=== PATIENT | female | born 2005 | race Caucasian/White ===

== ENCOUNTER 2024-10-30 21:30 | Emergency (ER) | payer MEDICAID, SELFPAY ==
--- NOTE | 2024-10-31 00:32 | PC.NURSE ---
PT DECIDED TO LEAVE
== END 2024-10-30 21:34 | disposition left against medical advice (07) ==
LOC: SERX 21:40
PROVIDERS: Emergency Provider Family Medicine
DX: Z53.21 Procedure and treatment not carried out due to patient leaving prior to being seen by health care provider (principal)
CPT/HCPCS: 99281

== ENCOUNTER 2024-10-30 23:14 | Emergency (ER) | payer MEDICAID, SELFPAY ==
[2024-10-30 23:16] VITALS: BMI 20.3
[2024-10-30 23:34] VITALS: BP 115/70; PULSE 71; RESP 16; TEMP 37.1; O2SAT 97
--- NOTE | 2024-10-30 23:51 | EDNOTE_ITS ---
ED Dental RME/HPI General Chief complaint: General Adult/Misc Complain Stated complaint: BUMPS INSIDE MOUTH Time Seen by Provider: 10/30/24 23:40 Arrival date/time: 10/30/24 23:14 This is a case of 18-year-old female with no medical history came in in the emergency room due to multiple lesion on the tongue and mouth for 3 days with pain worsening symptoms this patient decided to sought consult here in the emergency room Limitations: no limitations Related Data Previous Rx's ?Medication ?Instructions ?Recorded Hydrocodone/Acetaminophen * (NORCO 1 tab PO Q6H PRN PA IN 7 days #0 01/30/17 5/325 *) tabs ibuprofen 200 mg tablet 200 mg PO Q6HR PRN PAIN #90 tabs 01/30/17 hydrocodone 5 mg-acetaminophen 325 1 tab PO Q6H PRN pa in #6 tabs 10/30/24 mg tablet lidocaine HCl 2 % mucosal solution 10 ml PO Q4HR PRN o ral pain #100 mL 10/30/24 (Lidocaine Viscous) nystatin 100,000 unit/mL oral 500,000 unit (5 mL) PO Q 6H 5 days 10/30/24 suspension #100 mL valacyclovir 1 gram tablet 1,000 mg PO BID #20 tabs Allergies Allergy/AdvReac Type Severity Reaction Status Date / Time No Known Allergies Allergy Verified 10/30/24 23:15 Review of Systems Review of Systems Systems Reviewed: All systems reviewed, normal except as documented Constitutional Constitutional: Reports system reviewed and no additional complaints, except as documented and Reports as per HPI ENT Ears, Nose, Mouth, and Throat: Reports system reviewed and no additional complaints, except as documented and Reports as per HPI Cardiovascular Cardiovascular: Reports system reviewed and no additional complaints, except as documented and Reports as per HPI Respiratory Respiratory: Reports system reviewed and no additional complaints, except as documented and Reports as per HPI Gastrointestinal Gastrointestinal: Reports system reviewed and no additional complaints, except as documented and Reports as per HPI Integumentary/Breasts Skin/Breast: Reports system reviewed and no additional complaints, except as documented and Reports as per HPI Neurologic Neurologic: Reports system reviewed and no additional complaints, except as documented and Reports as per HPI Past Medical History Social History SMOKING STATUS: Current every day smoker ED Exam General Limitations: Present no limitations General appearance: Present alert, in no apparent distress and other (Is awake alert oriented not in distress nontoxic looking well-hydrated well-nourished) Head Head exam: Present atraumatic, normocephalic and normal inspection Eye Eye exam: Present normal appearance, PERRL and EOMI ENT ENT exam: Present normal exam, normal oropharynx, mucous membranes moist and ot her (HEENT exam is normal and unremarkable) Expanded ENT Exam Mouth exam: Present other (Noted whitish plaque on the dorsal aspect of the tongue and buccal mucosa suggestive of oral candidiasis patient also have confluent vesicular rash on the corner of the lips suggestive of cold sore); Absent drooling, trismus, lip swelling, tongue normal, tongue elevation, tongue swelling or laceration Neck Neck exam: Present normal inspection, full ROM and trachea midline; Absent tenderness, meningismus or lymphadenopathy Chest Chest inspection: Present normal inspection and symmetric chest wall rise; Absent tenderness Respiratory Respiratory exam: Present normal lung sounds bilaterally; Absent respiratory distress, wheezes, stridor, accessory muscle use or prolonged expiratory phase Cardiovascular Cardiovascular exam: Present regular rate, normal rhythm and normal heart sounds; Absent bradycardia, tachycardia, irregular rhythm, systolic murmur or diastolic murmur Abdominal Exam Abdominal exam: Present soft and normal bowel sounds Extremities Exam Extremities exam: Present normal inspection and full ROM Back Exam Back exam: Present normal inspection and full ROM Neurological Exam Neurological exam: Present alert, oriented X3, CN II-XII intact, normal gait and reflexes normal; Absent motor sensory deficit Psychiatric Psychiatric exam: Present normal affect and normal mood Skin Skin exam: Present warm, dry, intact and normal color Course Quality Measures none (None) Orders Category Date Time Status HSV-1&2 DNA, QN, CSF* Stat Lab 10/30/24 Ordered Fluconazole [Diflucan] Med 10/30/24 23:44 Discontinued 200 mg PO X1 ONE HYDROcodone*/APAP 5/325 [Gonzales 5/325] Med 10/30/24 23:44 Discontinued 1 tab PO X1 ONE Lidocaine 2% Viscous [Xylocaine 2% Viscous] Med 10/30/24 23:44 Discontinued 15 ml PO X1 ONE Vital Signs Vital signs: Vital Signs Temperature 98.7 F 10/30/24 23:34 Pulse Rate 71 10/30/24 23:34 Respiratory Rate 16 10/30/24 23:34 Blood Pressure 115/70 10/30/24 23:34 Pulse Oximetry (%) 97 10/30/24 23:34 Oxygen Delivery Method Room Air 10/30/24 23:34 Oxygen saturation is 97% in room air Dental / Oral MDM Narrative MDM Narrative:: This is a case of 18-year-old female with no medical history came in in the emergency room due to multiple lesion on the tongue and mouth for 3 days with pain worsening symptoms this patient decided to sought consult here in the emergency room physical examination patient is awake alert oriented not in distress nontoxic looking patient lungs sound is clear no crackles no rales no retraction no stridor noted tongue whitish plaque suggestive of oral candidiasis patient also noted to have confluent urticarial vesicular rash on the lips s uggestive of possible cold sore the rest of the physical examination and neurological exam is normal and unremarkable based on my physical examination and history patient symptoms suggestive of oral candidiasis and herpes labialis HSV test blood was ordered pending result patient was advised to call the medical records in 2 days for the result of the test patient was discharged with valacyclovir for herpes labialis and nystatin for oral candidiasis patient was given Gonzales and lidocaine viscous for severe pain patient will follow-up with PCP in 2 days for reevaluation and follow-up for any worsening symptoms return precaution in the ER was advised Patient was discharged with comfortable condition walking with stable gait. Patient verbalized no further complains explained diagnosis and answered patient question. Patient is comfortable with the proposed management plan including the need to follow up with his/her primary care physician and any specialist if applicable Discussed patient for any urgent condition or worsening sx, He/She needed to go to emergency room immediately or call 911. Patient acknowledge the responsibility to follow up as instructed and to monitor her/his symptoms. For any persistence of the symptoms for more than 3-5 days return precaution advised. Discussed the result of the test and was given printed discharge instruction Patient data External records reviewed:: [facility] previous records Clinical information provided by:: patient Social determinants that could affect healthcare access:: none Patient has the following chronic illnesses:: None How is presenting disease/condition affected by chronic disease/condition?: no chronic disease Evaluation data The following diagnostics were reviewed and interpreted by me:: other (specify) (None) Lab and/or radiology exams considered but not ordered:: None Interpretation Summary: None Medications / Prescriptions Medications or Prescriptions considered but not ordered:: Given Medication administrations:: Medication Administration History Discontinued Medications Hydrocodone Bitart/Acetaminophen (Hydrocodone/Apap 5/325 Tablet) 1 tab PO X1 ONE Stop: 10/30/24 23:45 Fluconazole (Fluconazole 100 Mg Tablet) 200 mg PO X1 ONE Stop: 10/30/24 23:45 Lidocaine HCl (Lidocaine Viscous 2% 15 Ml Udc) 15 ml PO X1 ONE Stop: 10/30/24 23:45 Given Consultations Consultation(s) initiated? (list below): No Diagnosis Dental Differential Diagnosis: gingival abscess, aphthous ulcer and other (Cold sore oral candidiasis) Most likely diagnosis given after review of the tests above:: Oral candidiasis cold sore Admission Indicated Admission indicated?: not indicated Explain why admission is indicated or not indicated:: Not indicated Admission Request Was there a request for admission?: No Admission Attestation Admission request attestation: Not indicated Disposition Plan Disposition Plan: Discharge Discharge Attestation Discharge Attestation: The patient and all family members were given an opportunity to ask questions and understood the discharge instructions. Discharge instructions specifically effects, indications for sooner follow up or return to the emergency department, and the expected course of current diagnosis. Patient condition: Stable Discharge Plan Plan Patient Disposition: HOME (Self Care) Patient condition on transfer: Stable Prescriptions/Referrals Prescriptions/Med Rec: New hydrocodone-acetaminophen 5-325 mg tablet 1 tab PO Q6H MDD max 4 tabs per day PRN (Reason: pain) Qty: 6 0RF nystatin 100,000 unit/mL suspension 500,000 unit PO Q6H 5 Days Qty: 100 0RF Rx Instructions: administer 1/2 of dose in each side of the mouth valacyclovir 1 gram tablet 1,000 mg PO BID Qty: 20 0RF lidocaine HCl [Lidocaine Viscous] 2 % solution 10 ml PO Q4HR PRN (Reason: oral pain) Qty: 100 0RF No Action ibuprofen 200 MG tablet 200 mg PO Q6HR PRN (Reason: PAIN) Qty: 90 1RF Hydrocodone/Acetaminophen * (NORCO 5/325 *) 1 TAB tablet 1 tab PO Q6H PRN (Reason: PAIN) 7 Days Qty: 0 0RF Problem List Clinical Impression: Candidiasis, mouth, Herpes labialis Patient/Caregiver Discharge Instructions Education Materials: [place] Infection: Thrush, Understanding Cold Sores Additional Instructions: Follow-up with your primary care physician in 2 days for reevaluation called medical records for the result of your blood tests worsening symptoms persistence in symptoms or any emergent concern call 911 or go to the nearest emergency room take your medication as directed oral care is advised keep hydrated Print Language: Malagasy Stand Alone Forms: Leonor Award Info., Patient Portal Info Letter PA/ADULT AND PEDIATRIC NEUROLOGIST Supervising Physician PA/ADULT AND PEDIATRIC NEUROLOGIST Supervising Physician: Dr. Avila
[2024-10-31] MEDS: HYDROcodone/APAP 5/325 TABLET 1 TAB PO (00:40)
[2024-10-31] MEDS: LIDOCAINE VISCOUS 2% 15 ML UDC PO (00:41)
[2024-10-31] MEDS: FLUCONAZOLE 100 MG TABLET 200 MG PO (00:47)
[2024-10-31 00:50] VITALS: RESP 18
[2024-11-17 06:20] LABS: HSV1 IgG Type Specific Ab* <0.90 INDEX; HSV2 IgG Type Specific Ab* <0.90 INDEX
== END 2024-10-31 00:51 | disposition home or self-care (01) ==
PROVIDERS: Nurse Practitioner Family; Emergency Provider Family Medicine; PCP Family Medicine
DX: B37.0 Candidal stomatitis (principal); B00.1 Herpesviral vesicular dermatitis; F17.210 Nicotine dependence, cigarettes, uncomplicated
CPT/HCPCS: 36415; 86695; 86696; 87530; 99283; J3490; A9270

== ENCOUNTER 2024-10-31 16:24 | Emergency (ER) | payer MEDICAID, SELFPAY ==
[2024-10-31 16:24] VITALS: BMI 21.0
[2024-10-31 16:31] VITALS: BP 118/83; PULSE 83; RESP 17; TEMP 37.1; O2SAT 98
--- NOTE | 2024-10-31 16:48 | EDNOTE_ITS ---
ED General RME/HPI General Chief complaint: General Adult/Misc Complain Stated complaint: NEED WORK NOT AND REFILL OF MEDICATION, SEEN 10/30 Time Seen by Provider: 10/31/24 16:47 Arrival date/time: 10/31/24 16:24 Spots on tongue HPI patient presents to the ER after being seen last night for spots on tongue, patient was given nystatin patient states she has inadvertently spilled three quarters of the bottle wishing for a refill. The patient denies any new symptoms including difficult swallowing difficulty speaking nausea vomiting or diarrhea. Related Data Previous Rx's ?Medication ?Instructions ?Recorded Hydrocodone/Acetaminophen * (NORCO 1 tab PO Q6H PRN PA IN 7 days #0 01/30/17 5/325 *) tabs ibuprofen 200 mg tablet 200 mg PO Q6HR PRN PAIN #90 tabs 01/30/17 hydrocodone 5 mg-acetaminophen 325 1 tab PO Q6H PRN pa in #6 tabs 10/30/24 mg tablet lidocaine HCl 2 % mucosal solution 10 ml PO Q4HR PRN o ral pain #100 mL 10/30/24 (Lidocaine Viscous) nystatin 100,000 unit/mL oral 500,000 unit (5 mL) PO Q 6H 5 days 10/30/24 suspension #100 mL valacyclovir 1 gram tablet 1,000 mg PO BID #20 tabs nystatin 100,000 unit/mL oral 10 ml PO QDAY #100 mL suspension Allergies Allergy/AdvReac Type Severity Reaction Status Date / Time No Known Allergies Allergy Verified 10/31/24 16:26 Review of Systems Review of Systems Narrative Review of Systems: GEN: No fever, no chills, no weight loss EYES: No discharge, no visual changes, no pain HEENT: No ear pain, no congestion, no sore throat PULM: No shortness of breath, no cough, no congestion CV: No chest pain, no dyspnea on exertion, no palpitations GI: No nausea, no vomiting, no diarrhea, no pain, no constipation : No frequency, no urgency, no dysuria MUSC/SKEL: No joint pain, no back pain SKIN: No rash PSYCH: No hallucinations, no depression HEME/LYMPH: No easy bleeding or bruising tendencies NEURO: No weakness, no headache Past Medical History Social History SMOKING STATUS: Never smoker ED Exam Narrative Physical exam: [General: Not in any acute distress Head normocephalic HEENT: Mouth pink moist membranes uvula midline the tongue patient has multiple small ulcerations/white patches to the base of the tongue. All other subsystems of HEENT are within acceptable limits Neck is supple nontender Chest equal chest rise nontender to palpation Respiratory: Clear to auscultation no wheezes crackles or rubs CV: Rate rhythm is regular no murmurs rubs or clicks Abdomen is soft nontender no masses positive bowel sounds all 4 quadrants Back: No CVA tenderness no spinous process tenderness from cervical spine thoracic and lumbar spine Skin: Intact no petechiae rash induration ulceration or crepitus Extremities: Moving all extremity against resistance cap refill less than 2 seconds neurosensory intact Neuro: Awake alert oriented x3 Glascow coma 15 no focal deficits] Course Quality Measures none Vital Signs Vital signs: Vital Signs Temperature 98.7 F 10/31/24 16:31 Pulse Rate 83 10/31/24 16:31 Respiratory Rate 17 10/31/24 16:31 Blood Pressure 118/83 10/31/24 16:31 Pulse Oximetry (%) 98 10/31/24 16:31 Oxygen Delivery Method Room Air 10/31/24 16:31 Discharge Plan Plan Patient Disposition: HOME (Self Care) Patient condition on transfer: Stable Prescriptions/Referrals Prescriptions/Med Rec: New nystatin 100,000 unit/mL suspension 10 ml PO QDAY Qty: 100 0RF Rx Instructions: administer 1/2 of dose in each side of the mouth No Action ibuprofen 200 MG tablet 200 mg PO Q6HR PRN (Reason: PAIN) Qty: 90 1RF Hydrocodone/Acetaminophen * (NORCO 5/325 *) 1 TAB tablet 1 tab PO Q6H PRN (Reason: PAIN) 7 Days Qty: 0 0RF hydrocodone-acetaminophen 5-325 mg tablet 1 tab PO Q6H MDD max 4 tabs per day PRN (Reason: pain) Qty: 6 0RF nystatin 100,000 unit/mL suspension 500,000 unit PO Q6H 5 Days Qty: 100 0RF Rx Instructions: administer 1/2 of dose in each side of the mouth valacyclovir 1 gram tablet 1,000 mg PO BID Qty: 20 0RF lidocaine HCl [Lidocaine Viscous] 2 % solution 10 ml PO Q4HR PRN (Reason: oral pain) Qty: 100 0RF Referrals: No Primary/Family,Physician [Primary Care Provider] - In 1 week Problem List Clinical Impression: Candidiasis, mouth Patient/Caregiver Discharge Instructions Print Language: Arabic Stand Alone Forms: Leonor Award Info., Patient Portal Info Letter, Work/School Release PA/FAMILY REUNIFICATION SPECIALIST Supervising Physician PA/FAMILY REUNIFICATION SPECIALIST Supervising Physician: Santiago Yun ENP MDM Narrative Sign Out note: Patient not in any acute distress. Clinical Information Provided by: patient Medical Records reviewed [facility] Meds/Rx considered, not ordered None Labs/Rad/Tests considered, not ordered None Chronic Illness/Social Conditions which may negatively complicate care or outcome(s)-explain: None or not applicable EKG EKG not done Labs Labs: none Imaging Imaging interpretation: none Medication Administration(s) none Diagnosis Differential Diagnosis ED Complaint MDM: Candidiasis, herpes simplex1, tongue ulcerations
== END 2024-10-31 17:07 | disposition home or self-care (01) ==
PROVIDERS: Emergency Provider Emergency Medicine; PCP Family Medicine
DX: B37.0 Candidal stomatitis (principal)
CPT/HCPCS: 99281